=== PATIENT | male | born 1955 | race Caucasian/White ===

== ENCOUNTER 2018-02-21 11:09 | Emergency (ER) | payer BC ==
[2018-02-21 11:21] VITALS: BMI 25.7
--- NOTE | 2018-02-21 11:23 | PDOC ---
History of Present Illness - General History Source: Patient Exam Limitations: No Limitations - History of Present Illness Initial Comments: 02/21/18 13:17 The patient is a 62-year-old male with past medical history of HTN (controlled) , DM, BPH ([place]om[place]), and HLD presents to the emergency department from Dr. Zhu office with chest discomfort. The patient presents with an onset of 11 days worsening chest tightness/congestion diffused across the chest wall, with intermittent mild chest pain, nonproductive, wet cough, and chills, relief noted with Advil. The patient associated concerns of a single episode of radiating anterior chest pain to the upper back, subjective fever 3-4 days ago, relief with lemon honey tea and generalized fatigue onset of yesterday. The patient reports a similar incident 6 months prior, with chest discomfort, cough and throat burning. The patient reported going to the doctor for evaluation of the symptoms and was diagnosed with pneumonia, treated with an antibiotic. The patient reports he had a follow-up CAT scan 2 weeks ago which was unremarkable. The patient states he had an echo done 4 years ago, which he states were normal. Denies night sweats. Denies shortness of breath when lying. Denies throat burning. Denies dysuria, hematuria, frequency or urgency to urinate. Denies diarrhea or constipation. Denies leg swelling. Denies vertigo or dizziness. Denies numbness, tingling or loss of sensation. Allergies: NKDA Social history: None reported. Surgical history: None reported. PCP: Dr. Tamayo. <Bernadette Kessler - Last Filed: 02/21/18 13:17> <Kush Gaspar - Last Filed: 02/21/18 15:44> - General Chief Complaint: Chest Pain Stated Complaint: CHEST PAIN Time Seen by Provider: 02/21/18 11:20 Past History <Bernadette Kessler - Last Filed: 02/21/18 13:17> - Suicide/Smoking/Psychosocial Hx Smoking History: Never smoked Hx Alcohol Use: No Drug/Substance Use Hx: No <Kush Gaspar - Last Filed: 02/21/18 15:44> - Past Medical History Allergies/Adverse Reactions: Allergies Allergy/AdvReac Type Severity Reaction Status Date / Time No Known Allergies Allergy Verified 02/21/18 11:18 Review of Systems - Review of Systems Constitutional: No: Chills, Fever Respiratory: Yes: Cough. No: Shortness of Breath, SOB with Exertion Cardiac (ROS): Yes: Chest Pain. No: Edema, Lightheadedness, Palpitations, Syncope ABD/GI: No: Nausea, Vomiting Neurological: No: Headache All Other Systems: Reviewed and Negative <Kush Gaspar - Last Filed: 02/21/18 15:44> *Physical Exam - Vital Signs Last Vital Signs Temp Pulse Resp BP Pulse Ox 98.3 F 79 20 154/94 99 02/21/18 11:10 02/21/18 11:10 02/21/18 11:10 02/21/18 11:10 02/21/18 11:10 - Physical Exam Comments: 02/21/18 12:23 GENERAL: The patient is awake, alert, and fully oriented, in no acute distress. HEAD: Normal with no signs of trauma. EYES: Pupils equal, round and reactive to light, extraocular movements intact, sclera anicteric, conjunctiva clear with no pallor. ENT: Ears normal, nares patent, oropharynx clear without exudates. Moist mucous membranes. NECK: Normal range of motion, supple without lymphadenopathy, JVD, or masses. LUNGS: (+) No focally decreased breath sounds. Breath sounds equal, clear to auscultation bilaterally. No wheeze/crackles. HEART: Regular rate and rhythm, normal S1 and S2 without murmur or rub. ABDOMEN: Soft/nontender/nondistended. BS wnl. No guarding or rebound. No palpable masses. No hepatosplenomegaly. EXTREMITIES: No lower extremity edema. Normal range of motion, no edema. No clubbing or cyanosis. No cords, erythema, or tenderness. NEUROLOGICAL: Cranial nerves II through XII grossly intact. Normal speech, normal gait. PSYCH: Normal mood, normal affect. SKIN: Warm, Dry, normal turgor, no rashes or lesions noted. <Bernadette Kessler - Last Filed: 02/21/18 13:17> - Vital Signs Last Vital Signs Temp Pulse Resp BP Pulse Ox 98.3 F 79 20 154/94 99 02/21/18 11:10 02/21/18 11:10 02/21/18 11:10 02/21/18 11:10 02/21/18 11:10 <ChasityKush - Last Filed: 02/21/18 15:44> Heart Score/ECG Review #1 ECG reviewed & interpreted by me at: 11:16 General ECG Interpretation: Sinus Rhythm, Normal Rate (60), Normal Intervals, No acute ischemic changes Compared to previous ECG there are: No significant change (02/21 940am,) <Kush Gaspar - Last Filed: 02/21/18 15:44> ED Treatment Course - LABORATORY CBC & Chemistry Diagram: 02/21/18 12:30 02/21/18 12:30 <Bernadette Kessler - Last Filed: 02/21/18 13:17> - LABORATORY CBC & Chemistry Diagram: 02/21/18 12:30 02/21/18 12:30 - RADIOLOGY Radiology Studies Ordered: Category Date Time Status CHEST X-RAY PORTABLE* [RAD] Stat Radiology 02/21/18 11:21 Ordered <Kush Gaspar - Last Filed: 02/21/18 15:44> Medical Decision Making - Medical Decision Making 02/21/18 11:49 62-year-old male with history of hypertension, high cholesterol, borderline diabetes presents from Dr. howard's office with 11d of chest congestion and cough, concern over possible EKG changes. Pt reports 11d of constant chest congestion with nonproductive cough, no SOB/ALMAZAN /orthopnea, ? chills one morning 3d ago. Feels identical to pneumonia he had in August of this year. EKG in office had ? anterior/inferior changes so referred to ED. stress test 4y ago normal. VSS well appearing, ambulating, smiling s1s2 rrr, no m ctab, no wheeze or crackles abd soft no edema 62y/o M with ACS risk factors p/w otherwise atypical sounding chest pain. EKG at office had changes in V1V2 (? repol), more consistent with [place] depression in the inferior leads. Stat EKG here is normal and pt asx. ? ACS, ? PNA/bronchitis. labs ekg, cxr discuss with Dr. Krishnamurthy, who was called by Dr. Tamayo reassess 02/21/18 15:42 Labs are within normal limits, chest x-ray is clear, troponin is negative. Reassuring in the setting of 11 days of persistent symptoms and an overall atypical chest pain story. The case was reviewed with the hospitalist team covering Dr. Mandel and with Dr. Krishnamurthy of cardiology. Plan at this time is to discharge patient with prompt follow-up on Sunday at 12:[address] Krishnamurthy's office for further cardiac evaluation. Patient agrees and prefers this plan, understands return criteria. <Kush Gaspar - Last Filed: 02/21/18 15:44> *DC/Admit/Observation/Transfer - Attestations Scribe Attestion: 02/21/18 12:23 Documentation prepared by Bernadette Kessler, acting as medical coding auditor for Kush Gaspar MD. <Bernadette Kessler - Last Filed: 02/21/18 13:17> <Kush Gaspar - Last Filed: 02/21/18 15:44> Diagnosis at time of Disposition: Atypical chest pain - Discharge Dispostion Disposition: HOME Condition at time of disposition: Stable - Referrals Referrals: Gray Krishnamurthy MD [Staff Physician] - Mar Tamayo MD [Provisional Medical Staff] - - Patient Instructions Printed Discharge Instructions: DI for Atypical Chest Pain Additional Instructions: Activity as tolerated. Stay hydrated. Tylenol 1000 mg every 8 hours and/or ibuprofen 600 mg every 8 hours as needed for pain. Continue your medications as previously prescribed by your physician. You should follow up with Dr. Tamayo as soon as possible regarding today's emergency department visit. You also need to follow up with Dr. Krishnamurthy of cardiology. He is expecting to see you in his office on Sunday at 12:30pm. Call the office today or tomorrow morning and alert them that Dr. Krishnamurthy is expecting you. Return to the emergency department for any new or concerning symptoms, particularly persistent or worsening pain, difficulty breathing or worsening cough, fevers or chills, palpitations.
[2018-02-21 12:41] LABS: BASO % 0.7 % (0-2.0); EOS % 15.8 % (0-4.5); HEMATOCRIT 45.9 % (35.4-49); LYMPH % 26.7 % (8-40); MCH 31.5 pg (25.7-33.7); MCHC 32.8 g/dl (32.0-35.9); MEAN CELL VOLUME 96.1 fl (80-96); MEAN PLT VOLUME 8.8 fl (7.5-11.1); MONO % 6.4 % (3.8-10.2); NEUT % 50.4 % (42.8-82.8); PLATELET COUNT 198 K/MM3 (134-434); RBC 4.78 M/mm3 (4.00-5.60); WHITE BLOOD COUNT 6.4 K/mm3 (4.0-10.0)
[2018-02-21 12:53] LABS: INR 1.04 (0.82-1.09); PROTHROMBIN TIME (PATIENT) 11.8 SEC (9.7-13.0)
[2018-02-21 13:04] LABS: ALBUMIN 4.1 g/dl (3.4-5.0); ANION GAP 6 (8-16); BILIRUBIN,TOTAL 1.5 mg/dL (0.2-1.0); BLOOD UREA NITROGEN 14 mg/dL (7-18); CALCIUM 8.8 mg/dL (8.5-10.1); CHLORIDE 105 mmol/L (98-107); CO2 29 mmol/L (21-32); CREATININE 0.7 mg/dL (0.7-1.3); GLUCOSE,RANDOM 90 mg/dL (74-106); MAGNESIUM 2.3 mg/dL (1.8-2.4); SGOT/AST 15 U/L (15-37); SGPT/ALT 24 U/L (12-78); SODIUM 140 mmol/L (136-145)
--- NOTE | 2018-02-21 13:06 | EKG ---
Test Reason : Blood Pressure : / mmHG Vent. Rate : 060 BPM Atrial Rate : 060 BPM P-R Int : 154 ms QRS Dur : 074 ms QT Int : 360 ms P-R-T Axes : 025 058 038 degrees QTc Int : 360 ms NORMAL SINUS RHYTHM NORMAL ECG NO PREVIOUS ECGS AVAILABLE Confirmed by ROSANNA BRAND MD ([id number]) on 02/21/2018 1:05:46 PM Referred By: Confirmed By:ROSANNA BRAND MD
[2018-02-21 13:07] LABS: ALK PHOS 94 U/L (45-117)
[2018-02-21 16:10] VITALS: BP 130/91; PULSE 63; TEMP 97.8
== END 2018-02-21 16:10 | disposition home or self-care (01) ==
LOC: JER 11:09
DX: R07.9 Chest pain, unspecified (principal); I10 Essential (primary) hypertension; E78.5 Hyperlipidemia, unspecified; E11.9 Type 2 diabetes mellitus without complications; Z79.84 Long term (current) use of oral hypoglycemic drugs; N40.0 Benign prostatic hyperplasia without lower urinary tract symptoms
CPT/HCPCS: 36415; 71046-TC-FY; 80053; 82550; 82553; 83735; 84484; 85025; 85610; 93005; 93010; 99283-25